=== PATIENT | female | born 1970 | race Caucasian/White ===

== ENCOUNTER 2022-11-30 11:57 | Emergency (ER) | payer BC, SELFPAY ==
[2022-11-30 12:10] VITALS: BP 131/87; PULSE 85; RESP 18; TEMP 37.1; O2SAT 99; BMI 21.9
--- NOTE | 2022-11-30 12:38 | DI.CT.S_ITS ---
PROCEDURE: CT CHEST ABD PEL W CON INDICATIONS: Abdominal/chest swelling TECHNIQUE: After the administration of intravenous contrast, 5 mm thick sections acquired from the lung apices to the symphysis. 5 mm coronal and sagittal reformats were performed, with additional 7 mm MIP reformats through the lungs. For radiation dose reduction, the following was used: automated exposure control, adjustment of mA and/or kV according to patient size. COMPARISON: None. FINDINGS: Image quality: Excellent. CHEST: Lungs and pleura: Mild dependent atelectasis in posterior aspect of bilateral lower lobes are seen. No acute airspace opacities. No pleural effusions or pneumothorax. Central and peripheral airways appear patent and normal in caliber. Mediastinum: Heart size is normal. No pericardial effusion. No mediastinal or hilar adenopathy by size criteria. Subcentimeter lymph nodes are seen in mediastinum measures up to 9 mm in size in right upper mediastinum near ascending thoracic aorta series 2, image 22. Thoracic aorta and central pulmonary arteries are normal in size. Esophagus is normal in caliber. There is a small hiatal hernia. Chest wall: No axillary or supraclavicular adenopathy by size criteria. Subcentimeter lymph nodes are seen in bilateral axilla measures up to 6 mm in size in left axilla. Thyroid gland is within normal limits. ABDOMEN: Solid organs: Liver is normal in size and enhancement. Gallbladder is contracted and show no gross abnormality.. Biliary system is non dilated. Pancreas enhances normally. Spleen is normal in size and enhancement. No adrenal nodules. Kidneys demonstrate normal size and enhancement, without hydronephrosis. Peritoneum and bowel: Large amount of ascites fluid is seen in abdomen and pelvis. There is no bowel obstruction. No gross abnormal bowel wall thickening or mesenteric fat stranding. No peritoneal free air. Thickened omentum in upper to mid abdomen is seen suggestive of omental cake. Nodes and vessels: No retroperitoneal or mesenteric adenopathy by size criteria. Aorta and inferior vena cava are normal in size. Miscellaneous: No ventral hernias. PELVIS: Genitourinary: Bladder wall thickness is normal. 4.2 x 6.5 x 7.5 cm cystic structure containing thin internal septation and questionable area of enhancement is seen in right adnexa. There is also questionable lobulated solid mass involving left adnexa/left side of uterus measures up to 7.8 x 6.4 x 6.4 cm in size series 2, image 102 and series 5, image 39. Miscellaneous: No inguinal hernias or adenopathy. Bones: No suspicious bony lesions. No vertebral body compression fractures. IMPRESSION: 1. 4.2 x 6.5 x 7.5 cm septated cystic lesion involving right adnexa concerning for cystic neoplasm of right ovarian origin. 2. 6.4 x 7.8 x 6.4 cm solid-appearing lesion involving left adnexa and is difficult to separate from left side of uterus concerning for solid left ovarian lesion versus uterine fibroid with adjacent left uterine invasion. Further evaluation with pelvic ultrasound or MRI is recommended. 3. Large amount of ascites fluid with suggestion of omental cake concerning for peritoneal metastasis. 4. No peritoneal free air. No gross abnormally enlarged lymph nodes are seen in chest, abdomen or pelvis. 5. Dependent atelectasis in posterior aspect of bilateral lower lobes. No focal infiltrate, pleural effusion or pneumothorax. No suspicious pulmonary nodule or mass. Dictated by: Silver Maldonado M.D. on 11/30/2022 at 13:07 Approved by: Silver Maldonado M.D. on 11/30/2022 at 13:19
[2022-11-30 12:55] LABS: Add Manual Diff / Slide Review NO; Basophils Absolute Auto 0 /uL (0-100); Basophils Percent Auto 0.4 % (0-2); Eosinophils Absolute Auto 100 /uL (0-450); Eosinophils Percent Auto 1.2 % (2-4); Hematocrit 41.4 % (36-46); Hemoglobin 14.3 g/dL (12.0-16.0); Lymphocytes Absolute Auto 1300 /uL (1100-4500); Lymphocytes Percent Auto 20.3 % (25-40); Mean Corpuscular HGB Conc 34.6 % (30-36); Mean Corpuscular Hemoglobin 29.6 PG (26-34); Mean Corpuscular Volume 85.4 fL (80-100); Monocytes Absolute Auto 500 /uL (0-900); Monocytes Percent Auto 7.9 % (3-14); Neutrophils Absolute Auto 4500 /uL (1500-7000); Neutrophils Percent Auto 70.2 % (50-75); Platelet Count 312 X10^3/uL (150-400); Red Blood Cell Count 4.85 X10^6/uL (4.0-5.2); Red Cell Distribution Width 12.8 % (11.6-14.8); White Blood Cell Count 6.4 X10^3/uL (4.5-11.0)
--- NOTE | 2022-11-30 12:59 | ED_ITS ---
HPI - Abdominal Pain General Chief Complaint: Abdominal Pain Stated Complaint: abd pain and distention Time Seen by Provider: 11/30/22 12:25 Source: patient Mode of arrival: Family Vehicle History of Present Illness HPI narrative: Patient here for complaints abdominal swelling. Ongoing for the past 3 weeks. No fever night sweats. No history ovarian cancer or any cancers at all. Denies abdominal surgical history. No family history ovarian cancer or colon cancer. Denies any trouble breathing. No history of liver disease. Related Data Allergies Allergy/AdvReac Type Severity Reaction Status Date / Time niacin AdvReac Flushing Verified 11/30/22 12:18 oxycodone [From Percocet] AdvReac ITCHING Verified 11/30/22 12:18 Review of Systems Review of Systems Narrative: GENERAL: negative chills, fatigue, malaise, fever, sweats. HEENT: negative sinus pain, ear pain, sore throat RESPIRATORY: negative dyspnea, cough CARDIOVASCULAR: negative chest pain, palpitations GASTROINTESTINAL: negative nausea, vomiting, positive abdominal distention : negative dysuria, frequency, hematuria MUSCULOSKELETAL: negative muscle or bony pain SKIN: negative rash, skin lesions NEUROLOGIC: negative weakness, numbness ROS Unobtainable: All systems reviewed & are unremarkable except as noted in HPI and below Patient History Social History Smoking Status: Never smoker Smoking Status: Never smoker alcohol intake frequency: a few times a week Alcohol type: wine Substance Use Type: does not use Exam Narrative Exam Narrative: GENERAL: in no distress, not toxic not dyspneic HEAD: Normocephalic. EYES: Pupils equal round ENT: Mucous membranes moist. NECK: Trachea midline. CARDIOVASCULAR: Regular rate and rhythm RESPIRATORY: Clear to auscultation. Breath sounds equal bilaterally. No wheezes, rales, or rhonchi. GASTROINTESTINAL: Abdomen soft, non-tender, there is marked distention of the abdomen due to patient's body habitus. No peritoneal signs. Bowel sounds are present. EXTREMITIES: No gross deformities. BACK: No flank tenderness. NEURO: AOx4. SKIN: Warm and dry PSYCH: Not anxious, is cooperative Initial Vital Signs Initial Vital Signs: Vital Signs Temperature 98.8 F 11/30/22 12:10 Pulse Rate 85 11/30/22 12:10 Respiratory Rate 18 11/30/22 12:10 Blood Pressure 131/87 11/30/22 12:10 Pulse Oximetry 99 11/30/22 12:10 Oxygen Delivery Method Room Air 11/30/22 12:10 Course Orders Ordered: Discontinued Medications Sodium Chloride (Normal Saline 0.9%) 500 mls @ 1,000 mls/hr IV BOLUS ONE Stop: 11/30/22 13:07 Last Admin: 11/30/22 13:37 Dose: Not Given Documented By: NR Ondansetron HCl (Ondansetron 4 Mg Odt) 4 mg PO NOW PRN PRN Reason: Nausea And Vomiting Ondansetron HCl (Ondansetron 4 Mg/2 Ml Inj) 4 mg IV NOW PRN PRN Reason: Nausea And Vomiting Vital Signs Vital signs: Vital Signs - 8 hr 11/30/22 12:10 Temperature 98.8 F Pulse Rate 85 Respiratory Rate 18 Blood Pressure 131/87 Pulse Oximetry 99 Oxygen Delivery Method Room Air MDM - Abdominal Pain Lab Data 11/30/22 12:39 11/30/22 12:39 Labs: Lab Results 11/30/22 11/30/22 11/30/22 Range/Units 12:39 12:39 12:39 WBC 6.4 (4.5-11.0) X10^3/uL RBC 4.85 (4.0-5.2) X10^6/uL Hgb 14.3 (12.0-16.0) g/dL Hct 41.4 (36-46) % MCV 85.4 (80-100) fL MCH 29.6 (26-34) PG MCHC 34.6 (30-36) % RDW 12.8 (11.6-14.8) % Plt Count 312 (150-400) X10^3/uL Neut % (Auto) 70.2 (50-75) % Lymph % (Auto) 20.3 L (25-40) % [place] % (Auto) 7.9 (3-14) % Eos % (Auto) 1.2 L (2-4) % Baso % (Auto) 0.4 (0-2) % Neut # (Auto) 4500 (5255-8631) /uL Lymph # (Auto) 1300 (4658-5091) /uL [place] # (Auto) 500 (0-900) /uL Eos # (Auto) 100 (0-450) /uL Baso # (Auto) 0 (0-100) /uL Sodium 136 L (137-145) mmol/L Potassium 3.9 (3.4-5.1) mmol/L Chloride 98 (98-107) mmol/L Carbon Dioxide 32 (22-32) mmol/L BUN 9 (7-17) mg/dL Creatinine 0.62 (0.52-1.04) mg/dL Estimated GFR > 60 (>60) mL/min BUN/Creatinine Ratio 14.5 (6-22) Glucose 96 (70-100) mg/dL Calcium 9.2 (8.4-10.2) mg/dL Total Bilirubin 0.7 (0.2-1.3) mg/dL AST 40 H (14-36) IU/L ALT 20 (<35) IU/L Alkaline Phosphatase 52 (38-126) U/L Total Protein 7.5 (6.3-8.2) g/dL Albumin 4.1 (3.5-5.0) g/dL Globulin 3.4 (1.7-4.1) g/dL Albumin/Globulin Ratio 1.2 (1.0-2.8) Lipase 118 (23-300) U/L CA 125 Antigen 9260 H (0-35) U/mL Point of care testing: Urine Dip Bedside Urine Glucose Negative Bedside Urine Bilirubin - Negative Bedside Urine Ketone - Negative Urine Specific [place] 1.005 Bedside Urine Occult Blood - Negative Bedside Urine pH 8.5 Bedside Urine Protein - Negative Bedside Urine Urobilinogen - Negative Bedside Urine Nitrite - Negative Bedside Urine Leukocytes - Negative Esterase Imaging Data CT scan - abdomen/pelvis: Radiologist's Impression: [address] [address] [address] Scan Report Signed Patient: Dara Hoskins MR#: [id number] : 1970 Acct:[id number] Age/Sex: 52 / F Date of Service: 11/30/22 Loc: ED Accession Number: [id number] ?? Procedure: CT chest abd pel w con Ordering Provider: Burton Rodriguez MD PROCEDURE:? CT CHEST ABD PEL W CON ? INDICATIONS:? Abdominal/chest swelling ? TECHNIQUE:? After the administration of intravenous contrast, 5 mm thick sections acquired from the lung apices to the symphysis.? 5 mm coronal and sagittal reformats were performed, with additional 7 mm MIP reformats through the lungs.? For radiation dose reduction, the following was used:? automated exposure control, adjustment of mA and/or kV according to patient size.? ? COMPARISON:? None. ? FINDINGS:? Image quality:? Excellent.? ? CHEST:? Lungs and pleura:? Mild dependent atelectasis in posterior aspect of bilateral lower lobes are seen.? No acute airspace opacities.? No pleural effusions or pneumothorax.? Central and peripheral airways appear patent and normal in caliber.? ? Mediastinum:? Heart size is normal.? No pericardial effusion.? No mediastinal or hilar adenopathy by size criteria.? Subcentimeter lymph nodes are seen in mediastinum measures up to 9 mm in size in right upper mediastinum near ascending thoracic aorta series 2, image 22.? Thoracic aorta and central pulmonary arteries are normal in size.? Esophagus is normal in caliber.? There is a small hiatal hernia.? ? Chest wall:? No axillary or supraclavicular adenopathy by size criteria.? Subcentimeter lymph nodes are seen in bilateral axilla measures up to 6 mm in size in left a xilla.? Thyroid gland is within normal limits.? ? ? ABDOMEN:? Solid organs:? Liver is normal in size and enhancement.? Gallbladder is contracted and show no gross abnormality..? Biliary system is non dilated.? Pancreas enhances normally.? Spleen is normal in size and enhancement.? No adrenal nodules.? Kidneys demonstrate normal size and enhancement, without hydronephrosis.? ? Peritoneum and bowel:? Large amount of ascites fluid is seen in abdomen and pelvis.? There is no bowel obstruction.? No gross abnormal bowel wall thickening or mesenteric fat stranding.? No peritoneal free air.? Thickened omentum in upper to mid abdomen is seen suggestive of omental cake. ? Nodes and vessels:? No retroperitoneal or mesenteric adenopathy by size criteria.? Aorta and inferior vena cava are normal in size.? ? Miscellaneous:? No ventral hernias.? ? ? PELVIS:? Genitourinary:? Bladder wall thickness is normal.? 4.2 x 6.5 x 7.5 cm cystic structure containing thin internal septation and questionable area of enhancement is seen in right adnexa.? There is also questionable lobulated solid mass involving left adnexa/left side of uterus measures up to 7.8 x 6.4 x 6.4 cm in size series 2, image 102 and ser ies 5, image 39. ? Miscellaneous:? No inguinal hernias or adenopathy.? ? Bones:? No suspicious bony lesions.? No vertebral body compression fractures.? ? IMPRESSION:? ? 1. 4.2 x 6.5 x 7.5 cm septated cystic lesion involving right adnexa concerning for cystic neoplasm of right ovarian origin. ? 2. 6.4 x 7.8 x 6.4 cm solid-appearing lesion involving left adnexa and is difficult to separate from left side of uterus concerning for solid left ovarian lesion versus uterine fibroid with adjacent left uterine invasion.? Further evaluation with pelvic ultrasound or MRI is recommended. ? 3.? Large amount of ascites fluid with suggestion of omental cake concerning for peritoneal metastasis. ? 4. No peritoneal free air.? No gross abnormally enlarged lymph nodes are seen in chest, abdomen or pelvis. ? 5. Dependent atelectasis in posterior aspect of bilateral lower lobes.? No focal infiltrate, pleural effusion or pneumothorax.? No suspicious pulmonary nodule or mass.? ? Dictated by: Silver Maldonado M.D. on 11/30/2022 at 13:07 ? ? Approved by: Silver Maldonado M.D. on 11/30/2022 at 13:19 ? [facility] Narrative Medical decision making narrative: Patient here for complaints abdominal swelling. Ongoing for the past 3 weeks. No fever night sweats. No history ovarian cancer or any cancers at all. Denies abdominal surgical history. No family history ovarian cancer or colon cancer. Denies any trouble breathing. No history of liver disease After history and exam CBC CMP lipase CT abdomen pelvis [facility] CC: Abdominal distention Complicating co-morbidities: None Data collected from: Patient Medical records reviewed: No recent visit for this complaint Differential considered: Includes but not limited to ovarian mass/cancer/familia rine cancer/bowel obstruction/liver cancer Exam documented above, pertinent findings include: Distended abdomen Lab Test results independently reviewed as above. Pertinent findings: Hemoglobin 14.3 hematocrit 41.4 AST 40 ALT 20 alkaline phosphatase 52 lipase 118 Imaging studies independently reviewed: CT abdomen pelvis concerning for ovarian neoplastic origin, concerning for peritoneal metastatic process Consultations: 2:[address] Malin, oncology on-call, he would like to see patient in the office, also would like Dr. Harry adhikari to be contacted, he uses this physician at [facility] for gynecological oncology. 3:[address] Perez, gynecologic Oncology with [place] services. She has taken down patient's contact cell phone number and her office will call patient for close follow-up and further testing. Treatments: Normal saline for renal clearance Re-evaluations: 2:15 p.m.. Spoke with patient results and my discussion Oncol ogy. Referral will be provided. The there in follow up. Call today for appointment time. Dr. Malin is expecting to see her. Patient is from [facility], here visiting for the summer while her house is being repaired./remodeled. They will return back to [facility] end of the summer 3:35 p.m.. Reviewed results with patient my discussion with oncology services. She does understand needs very urgent follow-up. She is from out of town and here for 4 more weeks but needs to start the process before she returns back to [facility]. Return precautions reviewed. No medications indicated at this time. She desires discharge home Discussion: Appropriate for discharge home. I have reviewed with oncology and needs outpatient workup. Return precautions reviewed with patient. No medications indicated at this time. Patient not requiring hospitalization. Diagnosis: Ovarian mass Discharge Plan Departure Patient Disposition: Home Clinical Impression: Mass of ovary Instructions: DI for Ovarian Cancer Activity Restrictions/Additional Instructions: Dr. Perez office will be calling you tomorrow to schedule office appointment time. Please do call Dr. Kline office tomorrow to schedule office appointment time. Dr. Perez is with gynecologic oncologist services. Dr. Malin is with medical oncology. At this time results today are preliminary and need further definitive testing Referrals: Niya Perez MD [Non-Staff] - Nola Malin MD [Physician] - Stand Alone Forms: Patient Portal/API
[2022-11-30 13:10] LABS: Alanine Aminotransferase 20 IU/L (<35); Albumin 4.1 g/dL (3.5-5.0); Albumin Globulin Ratio 1.2 (1.0-2.8); Alkaline Phosphatase 52 U/L (38-126); Aspartate Aminotransferase 40 IU/L (14-36); BUN Creatinine Ratio 14.5 (6-22); Bilirubin Total 0.7 mg/dL (0.2-1.3); Blood Urea Nitrogen 9 mg/dL (7-17); Calcium 9.2 mg/dL (8.4-10.2); Carbon Dioxide 32 mmol/L (22-32); Chloride 98 mmol/L (98-107); Estimated Glomerular Filt Rate > 60 mL/min (>60); Globulin 3.4 g/dL (1.7-4.1); Glucose 96 mg/dL (70-100); Lipase 118 U/L (23-300); Potassium 3.9 mmol/L (3.4-5.1); Sodium 136 mmol/L (137-145); Total Protein 7.5 g/dL (6.3-8.2)
[2022-11-30 13:15] LABS: HEMOLYSIS 69 (0-50)
[2022-11-30 15:30] VITALS: BP 120/54; PULSE 72; RESP 14; O2SAT 99
[2022-11-30 17:55] LABS: Cancer Antigen 125 9260 U/mL (0-35)
== END 2022-11-30 15:50 | disposition home or self-care (01) ==
PROVIDERS: Emergency Provider Emergency Medicine
DX: N83.8 Other noninflammatory disorders of ovary, fallopian tube and broad ligament (principal)
CPT/HCPCS: 36415; 71260; 74177; 80053; 81003; 83690; 85025; 86304; 93005; 99284; 99285

== ENCOUNTER → 2022-12-21 14:29 | Outpatient (CLI) | payer BC, SELFPAY ==
[2022-12-21 19:35] LABS: Add Manual Diff / Slide Review NO; Basophils Absolute Auto 0 /uL (0-100); Basophils Percent Auto 0.3 % (0-2); Eosinophils Absolute Auto 100 /uL (0-450); Eosinophils Percent Auto 2.4 % (2-4); Hematocrit 34.2 % (36-46); Hemoglobin 11.7 g/dL (12.0-16.0); Lymphocytes Absolute Auto 1500 /uL (1100-4500); Lymphocytes Percent Auto 34.9 % (25-40); Mean Corpuscular HGB Conc 34.3 % (30-36); Mean Corpuscular Hemoglobin 28.6 PG (26-34); Mean Corpuscular Volume 83.3 fL (80-100); Monocytes Absolute Auto 200 /uL (0-900); Monocytes Percent Auto 5.2 % (3-14); Neutrophils Absolute Auto 2500 /uL (1500-7000); Neutrophils Percent Auto 57.2 % (50-75); Platelet Count 220 X10^3/uL (150-400); Red Blood Cell Count 4.11 X10^6/uL (4.0-5.2); Red Cell Distribution Width 12.6 % (11.6-14.8); White Blood Cell Count 4.3 X10^3/uL (4.5-11.0)
== END ==
PROVIDERS: Visit Provider Obstetrics & Gynecology
DX: C56.9 Malignant neoplasm of unspecified ovary (principal)
CPT/HCPCS: 85025